=== PATIENT | female | born 1995 | race Caucasian/White ===

== ENCOUNTER 2022-11-17 09:48 | Emergency (ER) | payer OTHER ==
[~2022-11-17] VITALS: Ht 154.9 cm; Wt 87.0 kg
[2022-11-17 12:13] VITALS: BP 123/67
== END 2022-11-17 12:14 | disposition home or self-care (01) ==
LOC: ER 09:48
DX: R50.9 Fever, unspecified (principal); R05.9 Cough, unspecified
CPT/HCPCS: 99281